=== PATIENT | female | born 1975 | race Caucasian/White ===

== ENCOUNTER 2017-08-15 13:32 | Inpatient (IN) | payer OTHER ==
[2017-08-15] MEDS ORDERED: Ondansetron HCl/PF 4 MG/2 ML Vial ONE (13:55)
[2017-08-15] MEDS ORDERED: Promethazine HCl 25 MG/ML VIAL ONE (13:55)
[2017-08-15] MEDS ORDERED: Insulin Regular 300 UNITS/3 ML VIAL ONE (13:55)
[2017-08-15 14:31] LABS: Hematocrit 58.4 % (36.0-47.0); Mean Platelet Volume 7.8 fL (7.4-10.4); Red Blood Cell (RBC) Count 5.38 mill/uL (4.20-5.40); White Blood Cell (WBC) Count 24.9 thou/uL (4.8-10.8)
[2017-08-15 14:41] LABS: Anion Gap 9 mmol/L (-14-95); T. Carbon Dioxide 3.5 mmol/L (1.0-85.0); pH (Venous) 6.864 (7.35-7.45); vO2 Saturation-calc 66.4 % (0.0-100.0)
[2017-08-15 14:44] LABS: ALT (SGPT) 24 U/L (8-55); AST (SGOT) 15 U/L (5-34); Alkaline Phosphatase 141 U/L (40-150); BUN (Urea Nitrogen) 16 mg/dL (7.0-18.7); Bilirubin, Total 0.4 mg/dL (0.2-1.2); Calc. Creatinine Clearance 0 mL/min (70-130); Calcium 8.7 mg/dL (7.8-10.44); Chloride 103 mmol/L (98-107); Estimated GFR-MDRD 49; Globulin 3.9 g/dL (2.4-3.5); Lipase 51 U/L (8-78); Protein, Total 8.8 g/dL (6.0-8.3)
[2017-08-15 14:45] LABS: Band 12 % (5-11); Macrocytosis SLIGHT = 6-15 cells (100X) (0-5/hpf); Metamyelocyte 1 % (0-0); Neutrophil 82 % (42-75)
[2017-08-15 14:50] LABS: Carbon Dioxide Less than 8 mmol/L (22-29)
[2017-08-15] MEDS ORDERED: Morphine 2 MG/ML SYRINGE ONE (14:55)
[2017-08-15] MEDS ORDERED: Sodium Bicarbonate 2.4 MEQ/5 ML ONE (15:04)
[2017-08-15] MEDS ORDERED: Sodium Bicarb 50 MEQ/50 ML Abboject 8.4% SYRINGE ONE (15:04)
[2017-08-15] MEDS ORDERED: Insulin Regular 100 units/100 ml in NS IVPB ONE (15:15)
--- NOTE | 2017-08-15 15:33 | RAD ---
CHEST ONE VIEW: History: Shortness of breath. Comparison: 10-30-02 FINDINGS: New from the comparison examination is a nodular density projecting over the left lower lobe measuri ng approximately 1.6 x 0.9 cm. Remainder of the lungs are clear. No pneumothorax or effusion. Cardia c silhouette and mediastinal contours are normal. IMPRESSION: Nodular density in the left lower lobe, sized as above. It is unclear if this is osseous in nature v ersus focal areas of consolidation or nodule. Follow up two views of the chest non-emergently may be beneficial. If this persists, a CT examination should be performed. POS: LESLI
[2017-08-15] MEDS ORDERED: Ondansetron ODT 4 MG TAB PO PRN (16:17)
[2017-08-15] MEDS ORDERED: Artificial Tears 18 DROP/0.9 ML EA EYE PRN (16:17)
[2017-08-15] MEDS ORDERED: Loratadine 10 MG TAB PO PRN (16:17)
[2017-08-15] MEDS ORDERED: Chloraseptic Spray 180 ml Bottle PO PRN (16:17)
[2017-08-15] MEDS ORDERED: Sodium Chloride 0.9% 1,000 ML IV PRN ×4 (16:17)
[2017-08-15] MEDS ORDERED: NS 0.9% w/ 20 MEQ KCL 1,000 ML IV PRN ×2 (16:17)
[2017-08-15] MEDS ORDERED: Mag-Al 1200 mg/1200 mg/30 ML UDCUP PO PRN (16:17)
[2017-08-15] MEDS ORDERED: Zolpidem Tartrate 5 MG TAB PO PRN (16:17)
[2017-08-15] MEDS ORDERED: Loperamide HCl 2 MG CAP PO PRN (16:17)
[2017-08-15] MEDS ORDERED: Dextrose 5 %-0.45 % NaCl 1,000 ML IV PRN (16:17)
[2017-08-15] MEDS ORDERED: Eucerin (Mineral Oil/Petrolatum,White) 30 gm Jar TOP PRN (16:17)
[2017-08-15] MEDS ORDERED: Ondansetron HCl/PF 4 MG/2 ML Vial IVP PRN (16:17)
[2017-08-15] MEDS ORDERED: Milk Of Magnesia 30 ML UDCUP PO PRN (16:17)
[2017-08-15] MEDS ORDERED: HYDROcodone/Acetaminophen 5/325 mg Tablet PO PRN (16:17)
[2017-08-15] MEDS ORDERED: Diabetic Tussin 200 MG/10 ML UDCUP PO PRN (16:17)
[2017-08-15] MEDS ORDERED: Sodium Chloride 0.65% Nasal 44 ML BOT EA NARE PRN (16:17)
[2017-08-15] MEDS ORDERED: CCU Electrolyte Replacement 1 EACH IVPB ONE (16:17)
[2017-08-15] MEDS ORDERED: Senokot 8.6 MG TAB PO PRN (16:17)
[2017-08-15] MEDS ORDERED: Acetaminophen 325 MG TAB PO PRN (16:17)
[2017-08-15] MEDS ORDERED: Magnesium Oxide 400 MG TAB PO PRN ×2 (16:25)
[2017-08-15] MEDS ORDERED: Potassium Chloride 20 MEQ TAB PO PRN (16:25)
[2017-08-15] MEDS ORDERED: Potassium Phosphate 12 MMOL in Sodium Chloride 0.9% 250 ML 250 ML IV PRN (16:25)
[2017-08-15] MEDS ORDERED: Potassium Phosphate 9 MMOL in Sodium Chloride 0.9% 100 ML IVPB PRN (16:25)
[2017-08-15] MEDS ORDERED: Potassium Chloride 40 MEQ in Sodium Chloride 0.9% 250 ML 250 ML IVPB PRN (16:25)
[2017-08-15] MEDS ORDERED: Potassium Phosphate 15 MMOL in Sodium Chloride 0.9% 250 ML 250 ML IV PRN (16:25)
[2017-08-15] MEDS ORDERED: Magnesium 2 GM/NS 0.9% 100 ML 2 GM in Premix Bag 1 BAG IVPB PRN (16:25)
[2017-08-15] MEDS ORDERED: Potassium Chloride 40 MEQ in Premix Bag 1 BAG IVPB PRN (16:25)
[2017-08-15] MEDS ORDERED: CCU ELECTROLYTE REPLACEMENT PROTOCOL FS PRN (16:25)
--- NOTE | 2017-08-15 16:27 | HP ---
PRIMARY CARE PHYSICIAN: Dr. Marques. REASON FOR ADMISSION: DKA. HISTORY OF PRESENT ILLNESS: A 41-year-old female who has type 1 diabetes mellitus on insulin, who c nedra to emergency room with complaint of shortness of breath, nausea, vomiting, and abdominal discomf ort. Patient reports that last night she was experiencing nausea and vomiting. The patient was giv en last night Pepcid without any improvement. Her condition gotten worse to the point, she was not able to keep anything down. This morning when she woke up, she was persistently vomiting and she di d not take her insulin. She was feeling shortness of breath and abdominal pain. She did not have a ny fever or chills. She did not have any hematemesis, melena or hematochezia. She was complaining of back pain, which was related with her several times vomiting. When she came to emergency room, s he appeared sick, she appeared dehydrated. She was tachycardic and hypertensive. She was not able to provide a good history because she was feeling dry in her mouth and she was tachypneic. In the emergency room currently, routine blood tests showed leukocytosis and hemoconcentration with hemoglobin 18.7. Her VBG showed pH 6.86 and her bicarbonate was less than 8. She also had hypergly cemia. When I saw this patient at that time, patient has received so far 2 liters of IV fluid and s he has not made any urine yet. Patient also given 10 units bolus and insulin drip was started, as p atient was having tachypnea and Kussmaul type of bleeding. We gave her 1 ampule of sodium bicarbona te. Patient also received Zofran 4 mg and Phenergan 12.5 mg. REVIEW OF SYSTEMS: The following complete review of systems was negative, unless otherwise mentione d in the HPI or below: CONSTITUTIONAL: Weight loss or gain, ability to conduct usual activities. SKIN: Rash, itching. EYES: Double vision, pain. ENT/MOUTH: Nose bleeding, neck stiffness, pain, tenderness. CARDIOVASCULAR: Palpitations, dyspnea on exertion, orthopnea. RESPIRATORY: Shortness of breath, wheezing, cough, hemoptysis, fever or night sweats. GASTROINTESTINAL: Poor appetite, abdominal pain, heartburn, nausea, vomiting, constipation, or diar nusrat. GENITOURINARY: Urgency, frequency, dysuria, nocturia. MUSCULOSKELETAL: Pain, swelling. NEUROLOGIC/PSYCHIATRIC: Anxiety, depression. ALLERGY/IMMUNOLOGIC: Skin rash, bleeding tendency. Her review of system is very limited because patient is sick and she is not completely cooperative. EMERGENCY ROOM COURSE: So far, patient has received 2 liters of IV fluid, Zofran 4 mg, Phenergan 12 .5 mg, morphine 4 mg, Humulin R 15 units and subsequently insulin drip started, and sodium bicarbona te 1 ampule IV push. PAST MEDICAL HISTORY: Diabetes type 1, hypertension. PAST SURGICAL HISTORY: x2. PAST PSYCHIATRIC HISTORY: Reviewed and negative. SOCIAL HISTORY: Patient drinks alcohol socially. She smokes about 1 pack per day. She denies any other illicit drug abuse. FAMILY HISTORY: Father had coronary artery disease, required bypass grafting. Maternal aunt had br east cancer. CURRENT HOME MEDICATIONS: The patient is taking insulin at home. She is taking Tresiba 30 units sol bQ b.i.d. and NovoLog insulin subQ a.c as per sliding scale. She was taking lisinopril 10 mg p.o. d aily. PAST PSYCHIATRIC HISTORY: Reviewed and negative. ALLERGIES: SULFA DRUGS. PHYSICAL EXAMINATION: VITAL SIGNS: Blood pressure 160/128, pulse 126, respiratory rate 20, temperature 97.8, saturation 1 00% on room air. Weight 72.5 kilograms. GENERAL: Patient is currently tachypneic, hypertensive, tachycardic. HEAD: Normocephalic, atraumatic. EYES: Pupils round, reactive to light. Extraocular muscle intact. ENT: Dry mucous membranes, no oral lesions, no pharyngeal erythema, no exudate. NECK: Supple. Range of motion is normal. No meningeal signs of irritation, no JVD, no thyromegaly , no carotid bruits. LUNGS: Clear to auscultation without any rhonchi, tachypnea but no accessory muscles of respiration in use. CARDIAC: S1, S2 regular, tachycardia, no murmur, no gallop, no rub. ABDOMEN: Vague abdominal discomfort, but no peritoneal sign, no guarding, no rigidity, no rebound. No suprapubic tenderness. BACK: No point tenderness, no CVA tenderness. EXTREMITIES: Upper extremity: Passive movement of all joints are normal. Lower extremity: No laverne ma. Good peripheral pulsation. SKIN: No skin rash. HEMATOLOGICAL: No lymphadenopathy. PSYCHIATRIC: Normal affect. NEUROLOGIC: The patient is alert and oriented x3. Cranial nerves II-XII intact. Motor and sensati on within normal limits. No focal neurological deficit. She moves all 4 limbs. SIGNIFICANT LABS: EKG based on my review, sinus tachycardia, biatrial enlargement. Chest x-ray bas ed on my review, no acute cardiopulmonary process. CBC: WBC 24.9, hemoglobin 18.7, platelet 321, M CV 109. VBG: pH 6.86, bicarbonate 3, CO2 16.5, O2 58.4. BMP: Sodium 132, potassium 5.9, chloride 103, carbon dioxide less than 8, BUN 16, creatinine 1.22, glucose 511, calcium 8.7. LFT: AST 15, ALT 24, alkaline phosphatase 141, albumin 4.9. test negative. ASSESSMENT AND PLAN/IMPRESSION: 1. Acute diabetic ketoacidosis. At this point, the patient will require admission to IMCU. We carine l manage this patient with diabetes ketoacidosis protocol treatment, so far patient has received 2 l iters of IV fluid and we will continue IV fluids up until the patient makes urination and then we wi ll continue maintenance fluid. We will monitor Accu-Chek every hourly and insulin drip will be titr ated based on DKA protocol treatment. We will repeat a BMP every 4 hourly x2 and depending upon ronny ctrolytes. We will give her IV fluid with potassium as needed basis as pH is very low and patient h as tachypnea. One ampule of sodium bicarbonate is given. We will also check phosphorus, magnesium and calcium. We will also send urine culture, urinalysis and chest x-ray is already done. We will also repeat serum ketones and beta hydroxybutyrate 2 times today and tomorrow morning, we will repea t all blood tests altogether including CBC, CMP and electrolytes. During this admission, we will co ntinue electrolyte replacement protocol treatment. Whenever anion gap closed and her blood sugar de creases to less than 250. At that time, we will change IV fluid to dextrose with NS plus minus elec trolytes depending upon BMP result. WE will calculate her insulin requirement and tomorrow will sta rt her long-acting insulin and over left therapy with insulin drip and then will consider transferri ng her to medical floor. We will closely monitor in CCU. 2. Hypertension. We will use labetalol and hydralazine on p.r.n. basis and when patient able to ta ke p.o. well at that time, we will resume lisinopril therapy. 3. Tobacco abuse disorder. Smoking cessation counseling given. We will offer nicotine patch if ne eded. 4. Macrocytosis. The patient will be given folic acid and vitamin B12 upon discharge. 5. Abnormal electrolytes. At this point, the patient has hyponatremia and hyperkalemia, but we carine l continue to monitor and based on electrolytes result, we will treat accordingly. 6. Severe dehydration, likely due to osmotic diuresis. The patient will be given IV fluid and we w ill repeat BMP tomorrow. 7. Leukocytosis, likely due to stress response from diabetic ketoacidosis. We will repeat CBC at this point, the patient does not need any antibiotic therapy. 8. Hemoconcentration due to volume depletion and dehydration. We will repeat CBC tomorrow. 9. Deep venous thrombosis prophylaxis. Lovenox 40 mg subQ daily. 10. Gastrointestinal prophylaxis, Pepcid 20 mg IV b.i.d. 11. Code status: The patient is FULL CODE. Patient does not have any surrogate decision maker. Disposition plan based on clinical course. We are expecting patient's stay in hospital more than 2 midnights. Plan of care discussed with the patient and family member at bedside in the emergency ro om.
[2017-08-15 16:48] LABS: Magnesium 2.4 mg/dL (1.6-2.6); Phosphorus 3.8 mg/dL (2.3-4.7)
[2017-08-15 17:02] VITALS: BMI 27.7
[2017-08-15 17:56] LABS: BUN (Urea Nitrogen) 12 mg/dL (7.0-18.7); Calc. Creatinine Clearance 89 mL/min (70-130); Calcium 7.3 mg/dL (7.8-10.44); Carbon Dioxide Less than 8 mmol/L (22-29); Chloride 111 mmol/L (98-107); Estimated GFR-MDRD 66
[2017-08-15 20:44] LABS: BUN (Urea Nitrogen) 10 mg/dL (7.0-18.7); Calc. Creatinine Clearance 86 mL/min (70-130); Calcium 7.8 mg/dL (7.8-10.44); Chloride 112 mmol/L (98-107); Estimated GFR-MDRD 63
[2017-08-15 20:50] LABS: Carbon Dioxide Less than 8 mmol/L (22-29)
[2017-08-15] MEDS ORDERED: Famotidine/PF 20 mg/2ml Vial SLOW IVP SCH (21:00)
[2017-08-16 00:39] LABS: Anion Gap 13 mmol/L (10-20); BUN (Urea Nitrogen) 8 mg/dL (7.0-18.7); Calc. Creatinine Clearance 102 mL/min (70-130); Calcium 7.4 mg/dL (7.8-10.44); Carbon Dioxide 11 mmol/L (22-29); Chloride 113 mmol/L (98-107); Estimated GFR-MDRD 77
[2017-08-16 01:14] LABS: Bilirubin Negative (Negative); Blood, Urine Small (Negative); Glucose, Urine (Dipstick) >=1000 mg/dL (Negative); Ketone, Urine > or equal to 80 mg/dL (Negative); Nitrite Negative (Negative); Protein, Urine (Dipstick) 30 mg/dL (Neg-Trace); Urobilinogen 0.2 mg/dL (0.2-1.0)
[2017-08-16] MEDS: D5 1/2 NS w/20 mEq KCL 1,000 ML IV PRN ×3 (01:15→11:34)
[2017-08-16 01:17] LABS: Bacteria/HPF None Seen HPF (None Seen); Hyaline Casts/LPF 7-10 HYALINE CAST LPF (0-3 Hyaline); RBC/HPF 0-3 HPF (0-3); Squamous Epithelial 0-3 HPF (0-3)
[2017-08-16 01:27] LABS: Yeast-All Forms None Seen HPF (None Seen)
[2017-08-16 05:30] LABS: #Basophils 0.1 thou/uL (0.0-0.2); #Lymphocytes 1.4 thou/uL (1.20-3.40); #Monocytes 1.4 thou/uL (0.11-0.59); #Neutrophils 12.2 thou/uL (1.40-6.50); %Basophils 0.4 % (0.0-1.0); %Eosinophils 0.2 % (0.0-10.0); %Lymphocytes 9.2 % (21.0-51.0); %Monocytes 9.2 % (0.0-10.0); Hematocrit 45.5 % (36.0-47.0); Mean Platelet Volume 7.5 fL (7.4-10.4); Red Blood Cell (RBC) Count 4.39 mill/uL (4.20-5.40)
[2017-08-16 05:40] LABS: ALT (SGPT) 14 U/L (8-55); AST (SGOT) 9 U/L (5-34); Alkaline Phosphatase 91 U/L (40-150); Anion Gap 9 mmol/L (10-20); BUN (Urea Nitrogen) 7 mg/dL (7.0-18.7); Bilirubin, Total 0.6 mg/dL (0.2-1.2); Calc. Creatinine Clearance 118 mL/min (70-130); Calcium 7.6 mg/dL (7.8-10.44); Carbon Dioxide 14 mmol/L (22-29); Chloride 113 mmol/L (98-107); Estimated GFR-MDRD Greater than 90; Globulin 2.8 g/dL (2.4-3.5); Magnesium 1.6 mg/dL (1.6-2.6); Phosphorus Less than 1.0 mg/dL (2.3-4.7); Protein, Total 6.3 g/dL (6.0-8.3)
[2017-08-16] MEDS ORDERED: Enoxaparin Sodium 40 MG/0.4 ML SYRINGE SC SCH (09:00)
[2017-08-16] MEDS: Famotidine 20 MG TAB PO SCH ×2 (09:28→20:25)
[2017-08-16 10:52] LABS: Anion Gap 11 mmol/L (10-20); BUN (Urea Nitrogen) 7 mg/dL (7.0-18.7); Calc. Creatinine Clearance 129 mL/min (70-130); Calcium 7.7 mg/dL (7.8-10.44); Carbon Dioxide 16 mmol/L (22-29); Chloride 112 mmol/L (98-107); Estimated GFR-MDRD Greater than 90
[2017-08-16] MEDS ORDERED: Insulin Regular 300 UNITS/3 ML VIAL SC PRN (12:37)
[2017-08-16] MEDS ORDERED: Dextrose 5% in Water 1,000 ML IV PRN (12:37)
[2017-08-16] MEDS ORDERED: Dextrose 50% Abboject 50 ML SYRINGE SLOW IVP PRN (12:37)
[2017-08-16] MEDS ORDERED: DC Electrolyte Protocol FS ONE (12:38)
[2017-08-16] MEDS ORDERED: HumaLOG 300 UNITS/3 ML VIAL SC PRN (12:39)
--- NOTE | 2017-08-16 12:42 | PDOC.PN ---
- Subjective Encounter Start Date: 08/16/17 Encounter Start Time: 12:40 Patient seen and examined. No new complaints. No overnight events. No nausea. feels better. - Objective Resuscitation Status: Resuscitation Status FULL:Full Resuscitation MAR Reviewed: Yes Vital Signs & Weight: Vital Signs (12 hours) Temp Pulse Resp Pulse Ox 08/16/17 08:00 97.7 F 83 21 H 08/16/17 07:14 96 08/16/17 07:00 97.7 F 08/16/17 04:00 98.7 F Most Recent Monitor Data Heart Rate from ECG 73 NIBP 124/87 NIBP BP-Mean 105 Respiration from ECG 19 SpO2 100 I&O: 08/15/17 08/16/17 08/17/17 06:59 06:59 06:59 Intake Total 3118 0 Output Total 3750 300 Balance -632 -300 Result Diagrams: 08/16/17 04:07 08/17/17 04:36 Additional Labs: Accuchecks 08/16/17 08/16/17 08/16/17 12:14 11:12 10:14 POC Glucose 127 H 189 H 229 H 08/16/17 08/16/17 08/16/17 09:19 08:17 07:19 POC Glucose 259 H 135 H 117 H 08/16/17 08/16/17 08/16/17 06:04 05:14 04:02 POC Glucose 124 H 159 H 185 H 08/16/17 08/16/17 08/16/17 03:09 02:02 00:55 POC Glucose 213 H 225 H 230 H 08/15/17 08/15/17 08/15/17 23:52 22:51 21:50 POC Glucose 241 H 233 H 198 H 08/15/17 08/15/17 08/15/17 20:51 19:51 18:50 POC Glucose 208 H 219 H 247 H 08/15/17 08/15/17 16:50 16:12 POC Glucose 275 H 275 H EKG Reviewed by me: Yes (Tele SR) Phys Exam - Physical Examination Constitutional: NAD Respiratory: no wheezing, no rhonchi Cardiovascular: RRR, no rub Gastrointestinal: soft, non-tender, positive bowel sounds Musculoskeletal: no edema Dx/Plan (1) DKA (diabetic ketoacidoses) Code(s): E13.10 - OTH DIABETES MELLITUS WITH KETOACIDOSIS WITHOUT COMA Status : Acute Qualifiers: Diabetes mellitus type: type 1 (2) Electrolyte abnormality Code(s): E87.8 - OTH DISORDERS OF ELECTROLYTE AND FLUID BALANCE, NEC Status: Acute Comment: Hyperkalemia, hypokalemia, hyponatremia (3) YASMIN (acute kidney injury) Code(s): N17.9 - ACUTE KIDNEY FAILURE, UNSPECIFIED Status: Acute Comment: due to Prerenal/dehydration (4) Metabolic acidosis Code(s): E87.2 - ACIDOSIS Status: Acute Comment: due to DKA (5) Tobacco dependence Code(s): F17.200 - NICOTINE DEPENDENCE, UNSPECIFIED, UNCOMPLICATED Status: Chronic Comment: Counselled - Plan cont current plan of care, DVT proph w/SCDs * Transfer to medical * Change insulin to SQ * Change IVF to 1/2 NS with KCL * Cont to monitor * DC in AM if stable Review of Systems - Review of Systems Respiratory: negative: Cough, Dry, Shortness of Breath, Hemoptysis, SOB with Excertion, Pleuritic Pain, Sputum, Wheezing Cardiovascular: negative: Chest Pain, Palpitations, Orthopnea, Paroxysmal Noc. Dyspnea, Edema, Light Headedness, Other Gastrointestinal: negative: Nausea, Vomiting, Abdominal Pain, Diarrhea, Constipation, Melena, Hematochezia, Other - Medications/Allergies Allergies/Adverse Reactions: Allergies Allergy/AdvReac Type Severity Reaction Status Date / Time Sulfa (Sulfonamide Allergy Verified 09/05/13 14:33 Antibiotics) Medications: Current Medications Acetaminophen (Tylenol) 650 mg PO Q4H PRN PRN Reason: Headache/Fever or Pain Hydrocodone Bitart/Acetaminophen ([place] 5/325) 1 tab PO Q4H PRN PRN Reason: Moderate Pain (4-6) Al Hydroxide/Mg Hydroxide (Maalox) 30 ml PO Q6H PRN PRN Reason: Heartburn or Indigestion Artificial Tears (Tears Naturale) 0 drop EA EYE PRN PRN PRN Reason: Dry Eyes Dextrose/Water (Dextrose 50%) 25 gm SLOW IVP PRN PRN PRN Reason: Hypoglycemia Famotidine (Pepcid) 20 mg PO Q12HR ALEXUS Last Admin: 08/16/17 09:28 Dose: 20 mg Glucagon (Glucagon) 1 mg IM PRN PRN PRN Reason: Hypoglycemia Guaifenesin (Robitussin Sf) 200 mg PO Q4H PRN PRN Reason: Cough Insulin Human Regular 100 (units/ Sodium Chloride) 101 mls @ 0 mls/hr IVPB INF ALEXUS; Titrate PRN Reason: Protocol Last Admin: 08/16/17 05:20 Dose: 101 mls Dextrose/Water (D5w) 1,000 mls @ 0 mls/hr IV .Q0M PRN; As Directed PRN Reason: Hypoglycemia Insulin Detemir 15 units/ (Miscellaneous Medication) 0.15 mls @ 0 mls/hr SC BID ALEXUS Insulin Detemir 15 units/ (Miscellaneous Medication) 0.15 mls @ 0 mls/hr SC ONE ALEXUS Potassium Chloride/Sodium Chloride (1/2 Ns W/Kcl 20 Meq) 1,000 mls @ 125 mls/ hr IV .Q8H ALEXUS Insulin Human Lispro (Humalog) 0 units SC .MODERATE SLIDING SC PRN PRN Reason: Moderate Correctional Scale Insulin Human Lispro (Humalog) 0 units SC .BEDTIME SLIDING SC PRN PRN Reason: Bedtime Correctional Scale Loperamide HCl (Imodium) 2 mg PO PRN PRN PRN Reason: Diarrhea/Loose Stools Loratadine (Claritin) 10 mg PO DAILYPRN PRN PRN Reason: Sinus Symptoms Magnesium Hydroxide (Milk Of Magnesium) 30 ml PO DAILYPRN PRN PRN Reason: Constipation Mineral Oil/White Petrolatum (Eucerin Cream) 0 gm TOP BIDPRN PRN PRN Reason: Dry Skin Miscellaneous Information (Dc Electrolyte Protocol) 1 each FS ONE ONE Stop: 08/16/17 12:39 Ondansetron HCl (Zofran Odt) 4 mg PO Q6H PRN PRN Reason: Nausea/Vomiting Ondansetron HCl (Zofran) 4 mg IVP Q6H PRN PRN Reason: Nausea/Vomiting Phenol (Chloraseptic [place] 180 Ml Bot) 0 ml PO PRN PRN PRN Reason: Sore Throat Potassium Chloride (K-Dur) 40 meq PO ASDIR PRN PRN Reason: FOR SERUM K+ 2.5 - 3.5 Senna (Senokot) 2 tab PO HSPRN PRN PRN Reason: Constipation Sodium Chloride (Arthur Nasal [place] 0.65%) 0 ml EA NARE QIDPRN PRN PRN Reason: Nasal Congestion Zolpidem Tartrate (Ambien) 5 mg PO HSPRN PRN PRN Reason: Insomnia
[2017-08-16] MEDS ORDERED: Insulin Detemir 100 UNITS/ML 15 UNITS in Pre-Filled Syringe SC SCH ×2 (12:45→21:00)
[2017-08-16] MEDS: 1/2 NS w/KCL 20 mEq 1,000 ML IV SCH ×2 (16:48→17:43)
[2017-08-16] MEDS: HumaLOG 300 UNITS/3 ML VIAL SC PRN (17:44)
[2017-08-17] MEDS: 1/2 NS w/KCL 20 mEq 1,000 ML IV SCH ×2 (01:47→13:49)
[2017-08-17 05:18] LABS: Anion Gap 10 mmol/L (10-20); BUN (Urea Nitrogen) 6 mg/dL (7.0-18.7); Calc. Creatinine Clearance 164 mL/min (70-130); Calcium 7.8 mg/dL (7.8-10.44); Carbon Dioxide 19 mmol/L (22-29); Chloride 111 mmol/L (98-107); Estimated GFR-MDRD Greater than 90; Magnesium 1.7 mg/dL (1.6-2.6)
[2017-08-17 05:24] LABS: Phosphorus Less than 1.0 mg/dL (2.3-4.7)
[2017-08-17] MEDS ORDERED: Potassium Phosphate 15 MMOL in Sodium Chloride 0.9% 250 ML 250 ML IVPB SCH (06:00)
[2017-08-17] MEDS: K-Phos Neutral 250 MG TAB PO SCH ×2 (07:52→11:28)
[2017-08-17] MEDS: Famotidine 20 MG TAB PO SCH (07:53)
[2017-08-17 08:10] VITALS: BP 134/89; TEMP 98
[2017-08-17] MEDS ORDERED: Insulin Detemir 100 UNITS/ML 10 UNITS in Pre-Filled Syringe 1 EACH SC SCH (09:00)
[2017-08-17] MEDS: HumaLOG 300 UNITS/3 ML VIAL SC PRN (11:28)
--- NOTE | 2017-08-17 16:28 | DIS ---
DATE OF DISCHARGE: 08/17/2017 DISCHARGE DISPOSITION: Home. FOLLOWUP: 1. Follow up with Dr. Lorna Marques in 1 week. 2. A base met with a phosphorus in 1 week is recommended. Primary care physician to follow. ALLERGIES: SULFA. DISCHARGE MEDICATIONS: Same as admission medications. 1. Insulin degludec 30 units at bedtime. 2. Lisinopril 10 mg daily. 3. Humalog 10 units 3 times daily with meals. The patient was seen and examined on the day of discharge. Denies any new complaints. No chest dharmesh n, shortness of breath, palpitation, nausea, vomiting reported. BRIEF HOSPITAL COURSE: The patient is a 41-year-old female with diabetes mellitus type 1 on insulin , who presented to the hospital with nausea, vomiting, and abdominal discomfort. Please refer to [facility] history and physical dated 08/15/2017 for further details. The patient was admitted to the hospital with a diagnosis of diabetic ketoacidosis. Her bicarbonate on admission was 3.0 with venous pH of 6.8. Her sodium on admission was 132 with potassium 5.9 wit h a creatinine of 1.22 and blood glucose of 459. She was placed in the Intensive Care Unit and was started on DKA protocol with insulin drip. Electrolytes were gradually improved. Today on the day of discharge, her creatinine is 0.51 with an anion gap 10, bicarbonate of 19. Phosphorus was less t vila 1, today morning that has been replaced to 3.0. She was extensively counseled not to miss any d oses of insulin. Her chest x-ray was negative for infiltrate. Her urine cultures were also negativ e. SIGNIFICANT LABORATORY DATA: 1. Phosphorus repeat was 3.0, today morning was less than 1.0 2. Potassium on admission was 5.9, at discharge 3.4. 3. Bicarbonate less than 8 on admission, at discharge 19. 4. Creatinine on admission was 1.22, at discharge 0.51. 5. Ketones on admission was 12.95, at discharge was 0.23. Plan of care was discussed with the patient. She stated understanding. FINAL DIAGNOSES: 1. Diabetic ketoacidosis secondary to medication noncompliance. The patient did not take insulin f or more than 24 hours. 2. Multiple electrolyte imbalance including hypokalemia and hypophosphatemia. 3. Leukocytosis, probably stress response. Unlikely to be infectious. 4. Ongoing tobacco abuse, the patient was counseled. 5. Hypertension. 6. Dehydration with acute kidney injury on admission. 7. Microcytosis. The patient was advised to take multivitamin.
== END 2017-08-17 16:37 | disposition home or self-care (01) | DRG 638 ==
LOC: ERS 13:32 → CCU 15:00 → T4-A 08-16 20:19
PROVIDERS: ADMIT Internal Medicine; ATTEND Internal Medicine
DX: E10.10 Type 1 diabetes mellitus with ketoacidosis without coma (principal); N17.9 Acute kidney failure, unspecified; E87.2 Acidosis; E83.39 Other disorders of phosphorus metabolism; I10 Essential (primary) hypertension; Z91.14 Patient's other noncompliance with medication regimen; E87.6 Hypokalemia; E86.0 Dehydration; F17.210 Nicotine dependence, cigarettes, uncomplicated; F41.9 Anxiety disorder, unspecified; F32.9 Major depressive disorder, single episode, unspecified
CPT/HCPCS: 36415; 36416; 71010; 80048; 80053; 81001; 82010; 82330; 82803; 83605; 83690; 83735; 83930; 84100; 84703; 85025; 87086; 93005; 94760; 96361; 96365; 96375; 96376; J1650; J1815; J2270; J2405; J2550; J3475; J3480; J7050; S0028

== ENCOUNTER 2019-08-11 07:48 | Outpatient (CLI) | payer BC ==
--- NOTE | 2019-08-11 08:31 | ULT ---
Abdominal Ultrasound: Multiple grayscale images of right upper quadrant obtained according to protocol. INDICATION: Pain FINDINGS: Liver: Normal Gallbladder: Normal Gallbladder wall: Normal. Plunkett's Sign: Negative Common bile duct is normal. Ascites: None Spleen: Unremarkable. Pancreas: Partially obscured by bowel content, limiting assessment. Kidneys: No acute abnormalities. Aorta/IVC: No acute process. IMPRESSION: No acute abnormalities.
--- NOTE | 2019-08-11 09:02 | ULT ---
PELVIC ULTRASOUND: DATE: 08/11/2019. COMPARISON: None. HISTORY: Diffuse abdominal pain. TECHNIQUE: Multiplanar grayscale sonographic imaging of the pelvis obtained with transabdominal and endovaginal imaging. The ovaries are assessed with color flow and spectral analysis. FINDINGS: The uterus measures 11.5 x 5.9 x 4.5 cm. There is an IUD in place, limiting assessment of the endomet rial thickness. No significant free fluid is seen in the pelvis. The right ovary measures 3.3 x 1.7 x 2.9 cm and contains a cyst measuring 1.7 x 1.2 x 1.5 cm. Vague b lood flow noted within the right ovary. Evaluation of ovarian blood flow is limited secondary to body habitus and location of right ovary. Left ovary measures 3.1 x 2.6 x 4.3 cm. Left ovary can only be visualized on transabdominal imaging. There is a cyst within the left ovary measuring 3.1 x 2.3 x 3.0 cm. Blood flow cannot be documented within the left ovary, likely secondary to location and patient body habitus. IMPRESSION: Limited assessment of the ovaries as detailed above. Bilateral ovarian cysts are noted, left larger t vila right. No significant free fluid seen. Transcribed Date/Time: 08/11/2019 9:15 AM
== END 2019-08-11 07:49 | disposition home or self-care (01) ==
LOC: ULT 07:48
PROVIDERS: ATTEND Family Medicine
DX: R10.84 Generalized abdominal pain (principal); N83.202 Unspecified ovarian cyst, left side; N83.201 Unspecified ovarian cyst, right side
CPT/HCPCS: 76700; 76856

== ENCOUNTER 2021-01-09 09:28 | Outpatient (CLI) | payer BC | END 2021-01-09 09:29 | disposition home or self-care (01) | LOC: BICMRI 09:28 | PROVIDERS: ATTEND Nurse Practitioner Family | DX: M51.16 Intervertebral disc disorders with radiculopathy, lumbar region (principal); M47.26 Other spondylosis with radiculopathy, lumbar region; M47.27 Other spondylosis with radiculopathy, lumbosacral region | CPT/HCPCS: 72110; 72148 ==

== ENCOUNTER 2022-08-28 09:17 | Outpatient (CLI) | payer BC ==
[2022-08-28] MEDS ORDERED: Iopamidol 370 76% 100 ML VIAL ONE (10:16)
== END 2022-08-28 09:18 | disposition home or self-care (01) ==
LOC: CT 09:17
PROVIDERS: ATTEND Student in an Organized Health Care Education/Training Program
DX: K42.9 Umbilical hernia without obstruction or gangrene (principal); N32.89 Other specified disorders of bladder; M51.37 Other intervertebral disc degeneration, lumbosacral region
CPT/HCPCS: 74177; Q9967